=== PATIENT | female | born 1960 | race Caucasian/White ===

== ENCOUNTER 2020-10-09 08:00 | Outpatient (CLI) | payer OTHER | END 2020-10-09 08:30 | disposition home or self-care (01) | LOC: PPH VACUNA 08:00 | DX: Z23 Encounter for immunization (principal) ==

== ENCOUNTER 2020-10-30 08:00 | Outpatient (CLI) | payer OTHER ==
[2020-10-30] MEDS ORDERED: XOPENEX CO1.25 MG/0. (14:03)
[2020-10-30] MEDS ORDERED: JANTOVEN6 MG PO (14:03)
[2020-10-30] MEDS ORDERED: SOLU-MEDRO125 MG/2 M IJ (14:03)
[2020-10-30] MEDS ORDERED: DOLOGESIC 500-1 EACH PO (14:04)
[2020-10-30] MEDS ORDERED: NEURONTIN300 MG PO (14:04)
[2020-10-30] MEDS ORDERED: DILTIAZEM ER300 M2 (14:05)
[2020-10-30] MEDS ORDERED: ATARAX10 MG PO (14:05)
[2020-10-30] MEDS ORDERED: IPRATROPIU0.2 MG/1 M IH (14:06)
[2020-10-30] MEDS ORDERED: XOPENEX0.63 MG/3 (14:06)
[2020-10-30] MEDS ORDERED: PROMETHAZI6.25 MG/5 PO (14:06)
== END 2020-10-30 08:30 | disposition home or self-care (01) ==
LOC: PPH VACUNA 08:00
DX: Z23 Encounter for immunization (principal)

== ENCOUNTER 2020-10-30 13:40 | Emergency (ER) | payer OTHER ==
[~2020-10-30] VITALS: Ht 162.6 cm; Wt 98.0 kg
[2020-10-30] MEDS ORDERED: XOPENEX CO1.25 MG/0. (14:03)
[2020-10-30] MEDS ORDERED: SOLU-MEDRO125 MG/2 M IJ (14:03)
[2020-10-30] MEDS ORDERED: JANTOVEN6 MG PO (14:03)
[2020-10-30] MEDS ORDERED: NEURONTIN300 MG PO (14:04)
[2020-10-30] MEDS ORDERED: DOLOGESIC 500-1 EACH PO (14:04)
[2020-10-30] MEDS ORDERED: DILTIAZEM ER300 M2 (14:05)
[2020-10-30] MEDS ORDERED: ATARAX10 MG PO (14:05)
[2020-10-30] MEDS ORDERED: XOPENEX0.63 MG/3 (14:06)
[2020-10-30] MEDS ORDERED: IPRATROPIU0.2 MG/1 M IH (14:06)
[2020-10-30] MEDS ORDERED: PROMETHAZI6.25 MG/5 PO (14:06)
== END 2020-10-30 17:02 | disposition home or self-care (01) ==
LOC: ER 13:40 → CPU-OBS 16:09 → ER 17:02
DX: R07.89 Other chest pain (principal); R42 Dizziness and giddiness; R06.02 Shortness of breath; T50.B95A Adverse effect of other viral vaccines, initial encounter; Y92.89 Other specified places as the place of occurrence of the external cause

== ENCOUNTER 2021-05-07 08:00 | Outpatient (CLI) | payer OTHER ==
[~2021-05-07 08:00] MED LIST: ATARAX10 MG PO; DILTIAZEM ER300 M2; DOLOGESIC 500-1 EACH PO; IPRATROPIU0.2 MG/1 M IH; JANTOVEN6 MG PO; NEURONTIN300 MG PO; PROMETHAZI6.25 MG/5 PO; SOLU-MEDRO125 MG/2 M IJ; XOPENEX CO1.25 MG/0.; XOPENEX0.63 MG/3
== END 2021-05-07 08:30 | disposition home or self-care (01) ==
LOC: PPH VACUNA 08:00
PROVIDERS: ATTEND Emergency Medicine Pediatric Emergency Medicine
DX: Z23 Encounter for immunization (principal)